=== PATIENT | female | born 1990 ===

== ENCOUNTER 2019-12-11 17:26 | Inpatient (IN) | payer OTHER ==
--- NOTE | 2019-12-11 19:23 | History and Physical Report ---
History of Present Illness Date of examination: 12/11/19 History of present illness: G1 Po at 40.6 weeks today for IOL for post dates. Uncomplicated except for anemia and a UTI. GBS neg. PT was finger tip dilated in the office earlier today. Good FM, no LOF or VB. Family member translated. Past History Past Medical History: other (anemia) Past Surgical History: no surgical history Social history: no significant social history - Obstetrical History Expected Date of Delivery: 12/05/19 Actual Gestation: 40 Week(s) 6 Day(s) : 1 Medications and Allergies Allergies Allergy/AdvReac Type Severity Reaction Status Date / Time Penicillins AdvReac Swelling Verified 12/11/19 19:20 Review of Systems All systems: negative (except HPI) - Physical Exam Abdomen: Positive: normal appearance, soft. Negative: tenderness - Obstetrical FHR: category 1 FHR comments: 130s, reactive Results All other labs normal. Assessment and Plan - Patient Problems (1) Post-dates Current Visit: Yes Status: Acute Plan to address problem: Will check BPP and then assuming cervix is unchanged, will start cervical ripening.
[2019-12-11] MEDS ORDERED: MINERAL OIL 30 ML ORAL LIQD PO PRN (21:46)
[2019-12-11] MEDS ORDERED: TERBUTALINE 1 MG/1 ML INJ IVP PRN (21:46)
[2019-12-11] MEDS ORDERED: LIDOCAINE (2%) 20 MG/1 ML VIAL 20 ML MDV INFILTRATI ONE (21:46)
[2019-12-11] MEDS ORDERED: TERBUTALINE 1 MG/1 ML INJ SUB-Q PRN (21:46)
[2019-12-11] MEDS ORDERED: ePHEDrine SULFATE 50 MG/1 ML INJ IV PRN (21:46)
[2019-12-11] MEDS ORDERED: DINOPROSTONE 10 MG VAG SUPP VG ONE (21:46)
[2019-12-11] MEDS ORDERED: OXYTOCIN 20 UNIT/1000ML DRIP 20 UNITS/1,000 ML BAG IV SCH (22:00)
--- NOTE | 2019-12-11 22:01 | Ultrasound Report ---
Biophysical profile INDICATION: Post dates COMPARISON: None FINDINGS: breathing movement: 2/2 movement: 2/2 posture and tone: 2/2 Qualitative amniotic fluid volume: 2/2 IMPRESSION: Total score for biophysical profile is 8/8 heart rate is 153 bpm Signer Name: Masoud Bautista MD Signed: 12/11/2019 9:57 PM Workstation Name: [id number]
[2019-12-12 00:06] LABS: Hematocrit 34.2 % (30.3-42.9); Hemoglobin 12.2 gm/dl (10.1-14.3); Mean Corpuscular HGB Conc 36 % (30-34); Mean Corpuscular Volume 87 fl (79-97); Platelet Count 331 K/mm3 (140-440); Red Blood Count 3.93 M/mm3 (3.65-5.03); Red Cell Distribution Width 14.3 % (13.2-15.2)
[2019-12-12] MEDS ORDERED: BUTORPHANOL 2 MG/1 ML INJ ONE (10:07)
--- NOTE | 2019-12-12 10:22 | Progress Note ---
Assessment and Plan A: IUP @ 41 weeks Category II Tracing Active Labor GBS Negative P: Remove Cervidil AROM Start Pitocin Augmentation IV Pain Control Subjective - Subjective Date of service: 12/12/19 Patient reports: movement normal, contractions (Requesting IV Pain Control) Objective - Vital Signs Vital Signs: Vital Signs - 12hr 12/11/19 12/11/19 12/12/19 23:19 23:49 00:20 Temperature Pulse Rate 76 74 79 Respiratory Rate Blood Pressure 122/60 111/55 99/52 Blood Pressure [Left] 12/12/19 12/12/19 07:43 07:51 Temperature 98.2 F Pulse Rate 70 70 Respiratory 14 Rate Blood Pressure 109/57 Blood Pressure 109/57 [Left] - Exam Breasts: normal Cardiovascular: Regular rate Lungs: Normal air movement Abdomen: Present: normal appearance, soft Uterus: Present: normal, firm, fundal height above umbilicus FHR: category 2 FHR comments: FHR: 140, moderte varability, -accels, +mild varabile decels Uterine Contraction Monitor Mode: External Cervical Dilatation: 3.5 (Small amount of clear fluid upon AROM @ 1004) Cervical Effacement Percentage: 70 station: -2 Uterine Contraction Pattern: Irregular Uterine Tone Measurement Phase: Resting Uterine Contraction Intensity: Mild Extremities: normal - Labs Labs: Abnormal Labs 12/11/19 22:40 MCHC 36 H Laboratory Results - last 24 hr 12/11/19 12/11/19 22:40 22:40 WBC 10.8 RBC 3.93 Hgb 12.2 Hct 34.2 MCV 87 MCH 31 MCHC 36 H RDW 14.3 Plt Count 331 Blood Type O POSITIVE Antibody Screen Negative
[2019-12-12] MEDS: LACTATED RINGERS 1,000 ML IV SCH ×4 (10:26→20:37)
[2019-12-12] MEDS ORDERED: MINERAL OIL 30 ML ORAL LIQD PO PRN (10:34)
[2019-12-12] MEDS ORDERED: NALOXONE 0.4 MG/1 ML INJ IV PRN (10:34)
[2019-12-12] MEDS ORDERED: ONDANSETRON 4 MG/2 ML INJ IV PRN (10:34)
[2019-12-12] MEDS ORDERED: BUTORPHANOL 2 MG/1 ML INJ IV PRN (10:34)
[2019-12-12] MEDS ORDERED: LIDOCAINE (2%) 20 MG/1 ML VIAL 20 ML MDV INFILTRATI ONE (10:34)
[2019-12-12] MEDS ORDERED: OXYTOCIN DRIP 30 UNITS/500 ML BAG IV SCH (11:00)
[2019-12-12] MEDS ORDERED: NALOXONE 2 MG/2 ML INJ IV PRN (13:03)
[2019-12-12] MEDS ORDERED: ePHEDrine SULFATE 50 MG/1 ML INJ IV PRN (13:03)
--- NOTE | 2019-12-12 13:03 | Anesthesia Consultation ---
Anesthesia Consult and Med Hx Date of service: 12/12/19 - Airway Anesthetic Teeth Evaluation: Good ROM Head & Neck: Adequate Mental/Hyoid Distance: Adequate Mallampati Class: Class II Intubation Access Assessment: Good - Pulmonary Exam CTA: Yes - Pre-Operative Health Status ASA Pre-Surgery Classification: ASA2, Emergency Proposed Anesthetic Plan: Epidural - Pulmonary Hx Asthma: No COPD: No Hx Pneumonia: No - Cardiovascular System Hx Hypertension: No - Central Nervous System Hx Seizures: No Hx Psychiatric Problems: No - Endocrine Hx Renal Disease: No Hx End Stage Renal Disease: No Hx Hypothyroidism: No Hx Hyperthyroidism: No - Hematic Hx Anemia: No Hx Sickle Cell Disease: No - Other Systems Hx Alcohol Use: No
[2019-12-12] MEDS: fentaNYL-BUPIV 2 MCG/ML-0.125% 200 MCG/100 ML BAG EPIDURAL SCH ×2 (13:26→21:24)
--- NOTE | 2019-12-12 19:02 | Progress Note ---
Assessment and Plan A: IUP @ 41 weeks Category I Tracing Active Labor GBS Negative P: Internals X2 Continue Pitocin Augmentation Multiple Maternal Position Changes Subjective - Subjective Date of service: 12/12/19 Patient reports: movement normal, other (Resting well under epidural anesthesia) Objective - Vital Signs Vital Signs: Vital Signs - 12hr 12/12/19 12/12/19 12/12/19 07:43 07:51 12:22 Temperature 98.2 F Pulse Rate 70 70 Respiratory 14 16 Rate Blood Pressure 109/57 Blood Pressure 109/57 [Left] O2 Sat by Pulse Oximetry 12/12/19 12/12/19 12/12/19 12:34 12:36 12:41 Temperature Pulse Rate 95 H 122 H 87 Respiratory Rate Blood Pressure 127/81 154/88 143/63 Blood Pressure [Left] O2 Sat by Pulse Oximetry 12/12/19 12/12/19 12/12/19 12:43 12:45 12:47 Temperature Pulse Rate 75 85 77 Respiratory Rate Blood Pressure 136/62 125/58 133/60 Blood Pressure [Left] O2 Sat by Pulse 96 90 Oximetry 12/12/19 12/12/19 12/12/19 12:48 12:49 12:51 Temperature Pulse Rate 82 77 85 Respiratory Rate Blood Pressure 122/58 124/58 Blood Pressure [Left] O2 Sat by Pulse 96 Oximetry 12/12/19 12/12/19 12/12/19 12:53 12:55 12:56 Temperature Pulse Rate 63 63 75 Respiratory Rate Blood Pressure 137/63 120/58 Blood Pressure [Left] O2 Sat by Pulse 96 94 Oximetry 12/12/19 12/12/19 12/12/19 12:58 12:59 13:00 Temperature Pulse Rate 69 69 74 Respiratory Rate Blood Pressure 138/59 131/61 Blood Pressure [Left] O2 Sat by Pulse 99 Oximetry 12/12/19 12/12/19 12/12/19 13:01 13:03 13:05 Temperature Pulse Rate 70 67 64 Respiratory Rate Blood Pressure 137/60 133/63 135/60 Blood Pressure [Left] O2 Sat by Pulse 98 Oximetry 12/12/19 12/12/19 12/12/19 13:07 13:09 13:10 Temperature Pulse Rate 65 68 70 Respiratory Rate Blood Pressure 141/65 133/60 Blood Pressure [Left] O2 Sat by Pulse 97 Oximetry 12/12/19 12/12/19 12/12/19 13:11 13:13 13:15 Temperature Pulse Rate 80 66 71 Respiratory Rate Blood Pressure 137/60 136/61 140/65 Blood Pressure [Left] O2 Sat by Pulse 99 Oximetry 12/12/19 12/12/19 12/12/19 13:17 13:19 13:20 Temperature Pulse Rate 68 66 76 Respiratory Rate Blood Pressure 131/62 128/57 Blood Pressure [Left] O2 Sat by Pulse 99 Oximetry 12/12/19 12/12/19 12/12/19 13:21 13:25 13:30 Temperature Pulse Rate 69 67 68 Respiratory Rate Blood Pressure 165/133 121/59 Blood Pressure [Left] O2 Sat by Pulse 97 96 Oximetry 12/12/19 12/12/19 12/12/19 13:35 13:40 13:45 Temperature Pulse Rate 69 70 63 Respiratory Rate Blood Pressure Blood Pressure [Left] O2 Sat by Pulse 97 98 97 Oximetry 12/12/19 12/12/19 12/12/19 13:50 13:53 13:55 Temperature Pulse Rate 69 69 63 Respiratory Rate Blood Pressure 112/62 Blood Pressure [Left] O2 Sat by Pulse 98 97 Oximetry 12/12/19 12/12/19 12/12/19 14:00 14:05 14:10 Temperature Pulse Rate 66 74 72 Respiratory Rate Blood Pressure Blood Pressure [Left] O2 Sat by Pulse 98 98 97 Oximetry 12/12/19 12/12/19 12/12/19 14:15 14:20 14:22 Temperature Pulse Rate 65 65 76 Respiratory Rate Blood Pressure 116/67 Blood Pressure [Left] O2 Sat by Pulse 97 98 Oximetry 12/12/19 12/12/19 12/12/19 14:25 14:30 14:35 Temperature Pulse Rate 71 65 67 Respiratory Rate Blood Pressure Blood Pressure [Left] O2 Sat by Pulse 99 100 98 Oximetry 12/12/19 12/12/19 12/12/19 14:40 14:45 14:50 Temperature Pulse Rate 70 72 72 Respiratory Rate Blood Pressure Blood Pressure [Left] O2 Sat by Pulse 98 98 99 Oximetry 12/12/19 12/12/19 12/12/19 14:52 14:55 15:00 Temperature 97.9 F Pulse Rate 68 67 79 Respiratory 16 Rate Blood Pressure 111/69 Blood Pressure 111/69 [Left] O2 Sat by Pulse 99 99 99 Oximetry 12/12/19 12/12/19 12/12/19 15:05 15:10 15:15 Temperature Pulse Rate 70 76 67 Respiratory Rate Blood Pressure Blood Pressure [Left] O2 Sat by Pulse 99 98 98 Oximetry 12/12/19 12/12/19 12/12/19 15:20 15:23 15:25 Temperature Pulse Rate 73 69 72 Respiratory Rate Blood Pressure 117/58 Blood Pressure [Left] O2 Sat by Pulse 97 97 Oximetry 12/12/19 12/12/19 12/12/19 15:26 15:30 15:35 Temperature Pulse Rate 67 73 Respiratory 16 Rate Blood Pressure 117/58 Blood Pressure [Left] O2 Sat by Pulse 98 97 Oximetry 12/12/19 12/12/19 12/12/19 15:40 15:45 15:50 Temperature Pulse Rate 67 73 70 Respiratory Rate Blood Pressure Blood Pressure [Left] O2 Sat by Pulse 98 97 98 Oximetry 12/12/19 12/12/19 12/12/19 15:52 15:55 16:00 Temperature Pulse Rate 69 69 79 Respiratory Rate Blood Pressure 116/61 Blood Pressure [Left] O2 Sat by Pulse 98 98 Oximetry 12/12/19 12/12/19 12/12/19 16:05 16:10 16:13 Temperature Pulse Rate 78 96 H 117 H Respiratory Rate Blood Pressure Blood Pressure [Left] O2 Sat by Pulse 97 94 90 Oximetry 12/12/19 12/12/19 12/12/19 16:15 16:20 16:24 Temperature Pulse Rate 80 82 79 Respiratory Rate Blood Pressure 120/59 Blood Pressure [Left] O2 Sat by Pulse 97 97 Oximetry 12/12/19 12/12/19 12/12/19 16:25 16:30 16:35 Temperature Pulse Rate 92 H 81 79 Respiratory Rate Blood Pressure Blood Pressure [Left] O2 Sat by Pulse 97 97 96 Oximetry 12/12/19 12/12/19 12/12/19 16:40 16:45 16:50 Temperature Pulse Rate 75 76 77 Respiratory Rate Blood Pressure Blood Pressure [Left] O2 Sat by Pulse 97 96 97 Oximetry 12/12/19 12/12/19 12/12/19 16:52 16:54 16:55 Temperature Pulse Rate 83 76 77 Respiratory 16 Rate Blood Pressure 112/63 Blood Pressure 112/63 [Left] O2 Sat by Pulse 97 97 Oximetry 12/12/19 12/12/19 12/12/19 17:00 17:05 17:10 Temperature Pulse Rate 77 79 78 Respiratory Rate Blood Pressure Blood Pressure [Left] O2 Sat by Pulse 96 97 97 Oximetry 12/12/19 12/12/19 12/12/19 17:15 17:20 17:22 Temperature Pulse Rate 84 80 94 H Respiratory Rate Blood Pressure 100/59 Blood Pressure [Left] O2 Sat by Pulse 97 98 Oximetry 12/12/19 12/12/19 12/12/19 17:25 17:30 17:35 Temperature Pulse Rate 77 79 79 Respiratory Rate Blood Pressure Blood Pressure [Left] O2 Sat by Pulse 96 97 98 Oximetry 12/12/19 12/12/19 12/12/19 17:40 17:45 17:50 Temperature Pulse Rate 85 79 80 Respiratory Rate Blood Pressure Blood Pressure [Left] O2 Sat by Pulse 98 97 98 Oximetry 12/12/19 12/12/19 12/12/19 17:52 17:55 18:00 Temperature Pulse Rate 89 82 125 H Respiratory Rate Blood Pressure 119/58 Blood Pressure [Left] O2 Sat by Pulse 97 96 Oximetry 12/12/19 12/12/19 12/12/19 18:05 18:10 18:15 Temperature Pulse Rate 107 H 98 H 104 H Respiratory Rate Blood Pressure Blood Pressure [Left] O2 Sat by Pulse 98 98 99 Oximetry 12/12/19 12/12/19 12/12/19 18:20 18:23 18:25 Temperature Pulse Rate 91 H 84 84 Respiratory Rate Blood Pressure 110/62 Blood Pressure [Left] O2 Sat by Pulse 98 97 Oximetry 12/12/19 12/12/19 12/12/19 18:28 18:30 18:35 Temperature 98.1 F Pulse Rate 83 83 84 Respiratory 18 Rate Blood Pressure Blood Pressure 110/62 [Left] O2 Sat by Pulse 98 98 98 Oximetry 12/12/19 12/12/19 12/12/19 18:40 18:45 18:50 Temperature Pulse Rate 76 78 87 Respiratory Rate Blood Pressure Blood Pressure [Left] O2 Sat by Pulse 99 99 99 Oximetry 12/12/19 12/12/19 18:53 18:55 Temperature Pulse Rate 77 78 Respiratory Rate Blood Pressure 117/72 Blood Pressure [Left] O2 Sat by Pulse 98 Oximetry - Exam Breasts: normal Cardiovascular: Regular rate Lungs: Clear to auscultation, Normal air movement Abdomen: Present: normal appearance, soft, normal bowel sounds Uterus: Present: normal, firm, fundal height above umbilicus FHR: category 1 Uterine Contraction Monitor Mode: Internal Cervical Dilatation: 7 Cervical Effacement Percentage: 80 station: -2 Uterine Contraction Pattern: Regular Uterine Tone Measurement Phase: Resting Uterine Contraction Intensity: Moderate Extremities: normal - Labs Labs: Abnormal Labs 12/11/19 22:40 MCHC 36 H Laboratory Results - last 24 hr 12/11/19 12/11/19 22:40 22:40 WBC 10.8 RBC 3.93 Hgb 12.2 Hct 34.2 MCV 87 MCH 31 MCHC 36 H RDW 14.3 Plt Count 331 Blood Type O POSITIVE Antibody Screen Negative
[2019-12-12] MEDS ORDERED: METOCLOPRAMIDE 10 MG/2 ML INJ ONE (23:40)
[2019-12-12] MEDS ORDERED: BICITRA ORAL LIQD 30ML ONE (23:40)
--- NOTE | 2019-12-12 23:40 | Anesthesia Day of Surgery ---
Anesthesia Day of Surgery - Day of Surgery Patient Examined: Yes Patient H&P Reviewed: Yes Patient is NPO: Yes
[2019-12-12] MEDS ORDERED: FAMOTIDINE 20 MG/2 ML INJ IV ONE (23:41)
[2019-12-12] MEDS ORDERED: ceFAZolin/Water 2 GM/20 ML 2 GM/20 ML SYRINGE IV ONE (23:41)
[2019-12-12] MEDS ORDERED: DEXMEDETOMIDINE 200 MCG/2 ML VIAL IV ONE (23:47)
[2019-12-12] MEDS ORDERED: BUPIVACAINE/PF (0.25%) 2.5 MG/ML 10 ML VIAL INFILTRATI ONE (23:47)
[2019-12-13] MEDS ORDERED: BICITRA ORAL LIQD 30ML PO ONE (00:19)
[2019-12-13] MEDS ORDERED: METOCLOPRAMIDE 10 MG/2 ML INJ IV ONE (00:19)
[2019-12-13] MEDS ORDERED: FAMOTIDINE 20 MG/2 ML INJ IV ONE (00:19)
--- NOTE | 2019-12-13 00:33 | Progress Note ---
Subjective - Subjective Date of service: 12/13/19 Principal diagnosis: IIOL Interval history: Failed IOL cervix unchanged, vertex at -3, +ve caput tracing Category 1 plan for delivery informed consent signed with the [employer] NPO protection specialist to OR for procedure Jane Casper MD Patient reports: movement normal, other (Resting well under epidural anesthesia) Objective - Vital Signs Vital Signs: Vital Signs - 12hr 12/12/19 12/12/19 12/12/19 12:34 12:36 12:41 Temperature Pulse Rate 95 H 122 H 87 Respiratory Rate Blood Pressure 127/81 154/88 143/63 Blood Pressure [Left] O2 Sat by Pulse Oximetry 12/12/19 12/12/19 12/12/19 12:43 12:45 12:47 Temperature Pulse Rate 75 85 77 Respiratory Rate Blood Pressure 136/62 125/58 133/60 Blood Pressure [Left] O2 Sat by Pulse 96 90 Oximetry 12/12/19 12/12/19 12/12/19 12:48 12:49 12:51 Temperature Pulse Rate 82 77 85 Respiratory Rate Blood Pressure 122/58 124/58 Blood Pressure [Left] O2 Sat by Pulse 96 Oximetry 12/12/19 12/12/19 12/12/19 12:53 12:55 12:56 Temperature Pulse Rate 63 63 75 Respiratory Rate Blood Pressure 137/63 120/58 Blood Pressure [Left] O2 Sat by Pulse 96 94 Oximetry 12/12/19 12/12/19 12/12/19 12:58 12:59 13:00 Temperature Pulse Rate 69 69 74 Respiratory Rate Blood Pressure 138/59 131/61 Blood Pressure [Left] O2 Sat by Pulse 99 Oximetry 12/12/19 12/12/19 12/12/19 13:01 13:03 13:05 Temperature Pulse Rate 70 67 64 Respiratory Rate Blood Pressure 137/60 133/63 135/60 Blood Pressure [Left] O2 Sat by Pulse 98 Oximetry 12/12/19 12/12/19 12/12/19 13:07 13:09 13:10 Temperature Pulse Rate 65 68 70 Respiratory Rate Blood Pressure 141/65 133/60 Blood Pressure [Left] O2 Sat by Pulse 97 Oximetry 12/12/19 12/12/19 12/12/19 13:11 13:13 13:15 Temperature Pulse Rate 80 66 71 Respiratory Rate Blood Pressure 137/60 136/61 140/65 Blood Pressure [Left] O2 Sat by Pulse 99 Oximetry 12/12/19 12/12/19 12/12/19 13:17 13:19 13:20 Temperature Pulse Rate 68 66 76 Respiratory Rate Blood Pressure 131/62 128/57 Blood Pressure [Left] O2 Sat by Pulse 99 Oximetry 12/12/19 12/12/19 12/12/19 13:21 13:25 13:30 Temperature Pulse Rate 69 67 68 Respiratory Rate Blood Pressure 165/133 121/59 Blood Pressure [Left] O2 Sat by Pulse 97 96 Oximetry 12/12/19 12/12/19 12/12/19 13:35 13:40 13:45 Temperature Pulse Rate 69 70 63 Respiratory Rate Blood Pressure Blood Pressure [Left] O2 Sat by Pulse 97 98 97 Oximetry 12/12/19 12/12/19 12/12/19 13:50 13:53 13:55 Temperature Pulse Rate 69 69 63 Respiratory Rate Blood Pressure 112/62 Blood Pressure [Left] O2 Sat by Pulse 98 97 Oximetry 12/12/19 12/12/19 12/12/19 14:00 14:05 14:10 Temperature Pulse Rate 66 74 72 Respiratory Rate Blood Pressure Blood Pressure [Left] O2 Sat by Pulse 98 98 97 Oximetry 12/12/19 12/12/19 12/12/19 14:15 14:20 14:22 Temperature Pulse Rate 65 65 76 Respiratory Rate Blood Pressure 116/67 Blood Pressure [Left] O2 Sat by Pulse 97 98 Oximetry 12/12/19 12/12/19 12/12/19 14:25 14:30 14:35 Temperature Pulse Rate 71 65 67 Respiratory Rate Blood Pressure Blood Pressure [Left] O2 Sat by Pulse 99 100 98 Oximetry 12/12/19 12/12/19 12/12/19 14:40 14:45 14:50 Temperature Pulse Rate 70 72 72 Respiratory Rate Blood Pressure Blood Pressure [Left] O2 Sat by Pulse 98 98 99 Oximetry 12/12/19 12/12/19 12/12/19 14:52 14:55 15:00 Temperature 97.9 F Pulse Rate 68 67 79 Respiratory 16 Rate Blood Pressure 111/69 Blood Pressure 111/69 [Left] O2 Sat by Pulse 99 99 99 Oximetry 12/12/19 12/12/19 12/12/19 15:05 15:10 15:15 Temperature Pulse Rate 70 76 67 Respiratory Rate Blood Pressure Blood Pressure [Left] O2 Sat by Pulse 99 98 98 Oximetry 12/12/19 12/12/19 12/12/19 15:20 15:23 15:25 Temperature Pulse Rate 73 69 72 Respiratory Rate Blood Pressure 117/58 Blood Pressure [Left] O2 Sat by Pulse 97 97 Oximetry 12/12/19 12/12/19 12/12/19 15:26 15:30 15:35 Temperature Pulse Rate 67 73 Respiratory 16 Rate Blood Pressure 117/58 Blood Pressure [Left] O2 Sat by Pulse 98 97 Oximetry 12/12/19 12/12/19 12/12/19 15:40 15:45 15:50 Temperature Pulse Rate 67 73 70 Respiratory Rate Blood Pressure Blood Pressure [Left] O2 Sat by Pulse 98 97 98 Oximetry 12/12/19 12/12/19 12/12/19 15:52 15:55 16:00 Temperature Pulse Rate 69 69 79 Respiratory Rate Blood Pressure 116/61 Blood Pressure [Left] O2 Sat by Pulse 98 98 Oximetry 12/12/19 12/12/19 12/12/19 16:05 16:10 16:13 Temperature Pulse Rate 78 96 H 117 H Respiratory Rate Blood Pressure Blood Pressure [Left] O2 Sat by Pulse 97 94 90 Oximetry 12/12/19 12/12/19 12/12/19 16:15 16:20 16:24 Temperature Pulse Rate 80 82 79 Respiratory Rate Blood Pressure 120/59 Blood Pressure [Left] O2 Sat by Pulse 97 97 Oximetry 12/12/19 12/12/19 12/12/19 16:25 16:30 16:35 Temperature Pulse Rate 92 H 81 79 Respiratory Rate Blood Pressure Blood Pressure [Left] O2 Sat by Pulse 97 97 96 Oximetry 12/12/19 12/12/19 12/12/19 16:40 16:45 16:50 Temperature Pulse Rate 75 76 77 Respiratory Rate Blood Pressure Blood Pressure [Left] O2 Sat by Pulse 97 96 97 Oximetry 12/12/19 12/12/19 12/12/19 16:52 16:54 16:55 Temperature Pulse Rate 83 76 77 Respiratory 16 Rate Blood Pressure 112/63 Blood Pressure 112/63 [Left] O2 Sat by Pulse 97 97 Oximetry 12/12/19 12/12/19 12/12/19 17:00 17:05 17:10 Temperature Pulse Rate 77 79 78 Respiratory Rate Blood Pressure Blood Pressure [Left] O2 Sat by Pulse 96 97 97 Oximetry 12/12/19 12/12/19 12/12/19 17:15 17:20 17:22 Temperature Pulse Rate 84 80 94 H Respiratory Rate Blood Pressure 100/59 Blood Pressure [Left] O2 Sat by Pulse 97 98 Oximetry 12/12/19 12/12/19 12/12/19 17:25 17:30 17:35 Temperature Pulse Rate 77 79 79 Respiratory Rate Blood Pressure Blood Pressure [Left] O2 Sat by Pulse 96 97 98 Oximetry 12/12/19 12/12/19 12/12/19 17:40 17:45 17:50 Temperature Pulse Rate 85 79 80 Respiratory Rate Blood Pressure Blood Pressure [Left] O2 Sat by Pulse 98 97 98 Oximetry 12/12/19 12/12/19 12/12/19 17:52 17:55 18:00 Temperature Pulse Rate 89 82 125 H Respiratory Rate Blood Pressure 119/58 Blood Pressure [Left] O2 Sat by Pulse 97 96 Oximetry 12/12/19 12/12/19 12/12/19 18:05 18:10 18:15 Temperature Pulse Rate 107 H 98 H 104 H Respiratory Rate Blood Pressure Blood Pressure [Left] O2 Sat by Pulse 98 98 99 Oximetry 12/12/19 12/12/19 12/12/19 18:20 18:23 18:25 Temperature Pulse Rate 91 H 84 84 Respiratory Rate Blood Pressure 110/62 Blood Pressure [Left] O2 Sat by Pulse 98 97 Oximetry 12/12/19 12/12/19 12/12/19 18:28 18:30 18:35 Temperature 98.1 F Pulse Rate 83 83 84 Respiratory 18 Rate Blood Pressure Blood Pressure 110/62 [Left] O2 Sat by Pulse 98 98 98 Oximetry 12/12/19 12/12/19 12/12/19 18:40 18:45 18:50 Temperature Pulse Rate 76 78 87 Respiratory Rate Blood Pressure Blood Pressure [Left] O2 Sat by Pulse 99 99 99 Oximetry 12/12/19 12/12/19 12/12/19 18:53 18:55 19:00 Temperature Pulse Rate 77 78 79 Respiratory Rate Blood Pressure 117/72 Blood Pressure [Left] O2 Sat by Pulse 98 99 Oximetry 12/12/19 12/12/19 12/12/19 19:05 19:10 19:15 Temperature Pulse Rate 79 80 82 Respiratory Rate Blood Pressure Blood Pressure [Left] O2 Sat by Pulse 97 98 98 Oximetry 12/12/19 12/12/19 12/12/19 19:20 19:23 19:25 Temperature Pulse Rate 73 73 77 Respiratory Rate Blood Pressure 110/65 Blood Pressure [Left] O2 Sat by Pulse 98 97 Oximetry 12/12/19 12/12/19 12/12/19 19:30 19:35 19:40 Temperature Pulse Rate 85 78 72 Respiratory Rate Blood Pressure Blood Pressure [Left] O2 Sat by Pulse 97 95 97 Oximetry 12/12/19 12/12/19 12/12/19 19:45 19:50 19:52 Temperature Pulse Rate 75 82 78 Respiratory Rate Blood Pressure 118/70 Blood Pressure [Left] O2 Sat by Pulse 96 97 Oximetry 12/12/19 12/12/19 12/12/19 19:55 20:00 20:05 Temperature Pulse Rate 80 81 81 Respiratory Rate Blood Pressure Blood Pressure [Left] O2 Sat by Pulse 98 97 97 Oximetry 12/12/19 12/12/19 12/12/19 20:10 20:15 20:20 Temperature Pulse Rate 76 85 85 Respiratory Rate Blood Pressure Blood Pressure [Left] O2 Sat by Pulse 97 98 100 Oximetry 12/12/19 12/12/19 12/12/19 20:24 20:25 20:29 Temperature Pulse Rate 81 85 84 Respiratory 18 Rate Blood Pressure 110/60 Blood Pressure 110/60 [Left] O2 Sat by Pulse 100 100 Oximetry 12/12/19 12/12/19 12/12/19 20:30 20:35 20:40 Temperature Pulse Rate 83 79 72 Respiratory Rate Blood Pressure Blood Pressure [Left] O2 Sat by Pulse 100 99 99 Oximetry 12/12/19 12/12/19 12/12/19 20:45 20:50 20:52 Temperature Pulse Rate 70 74 72 Respiratory Rate Blood Pressure 103/55 Blood Pressure [Left] O2 Sat by Pulse 100 99 Oximetry 12/12/19 12/12/19 12/12/19 20:55 21:00 21:05 Temperature Pulse Rate 79 84 76 Respiratory Rate Blood Pressure Blood Pressure [Left] O2 Sat by Pulse 100 100 100 Oximetry 12/12/19 12/12/19 12/12/19 21:10 21:15 21:20 Temperature Pulse Rate 74 76 79 Respiratory Rate Blood Pressure Blood Pressure [Left] O2 Sat by Pulse 99 100 100 Oximetry 12/12/19 12/12/19 12/12/19 21:24 21:25 21:29 Temperature Pulse Rate 72 81 85 Respiratory Rate Blood Pressure 104/53 119/65 Blood Pressure [Left] O2 Sat by Pulse 100 Oximetry 12/12/19 12/12/19 12/12/19 21:30 21:35 21:40 Temperature Pulse Rate 79 78 82 Respiratory Rate Blood Pressure Blood Pressure [Left] O2 Sat by Pulse 100 99 98 Oximetry 12/12/19 12/12/19 12/12/19 21:45 21:50 21:55 Temperature Pulse Rate 139 H 107 H 94 H Respiratory Rate Blood Pressure Blood Pressure [Left] O2 Sat by Pulse 96 98 97 Oximetry 12/12/19 12/12/19 12/12/19 22:00 22:05 22:10 Temperature 98.9 F Pulse Rate 87 88 82 Respiratory 20 Rate Blood Pressure 102/56 Blood Pressure [Left] O2 Sat by Pulse 97 96 97 Oximetry 12/12/19 12/12/19 12/12/19 22:15 22:20 22:25 Temperature Pulse Rate 83 84 82 Respiratory Rate Blood Pressure Blood Pressure [Left] O2 Sat by Pulse 97 97 97 Oximetry 12/12/19 12/12/19 12/12/19 22:30 22:35 22:40 Temperature Pulse Rate 85 82 84 Respiratory Rate Blood Pressure 98/55 Blood Pressure [Left] O2 Sat by Pulse 98 97 96 Oximetry 12/12/19 12/12/19 12/12/19 22:45 22:50 22:55 Temperature Pulse Rate 83 83 82 Respiratory Rate Blood Pressure Blood Pressure [Left] O2 Sat by Pulse 95 97 96 Oximetry 12/12/19 12/12/19 12/12/19 23:00 23:05 23:10 Temperature Pulse Rate 84 73 79 Respiratory Rate Blood Pressure 98/51 Blood Pressure [Left] O2 Sat by Pulse 99 99 99 Oximetry 12/12/19 12/12/19 12/12/19 23:15 23:20 23:25 Temperature Pulse Rate 81 101 H 70 Respiratory Rate Blood Pressure Blood Pressure [Left] O2 Sat by Pulse 99 100 100 Oximetry 12/12/19 12/12/19 12/12/19 23:30 23:31 23:35 Temperature Pulse Rate 66 63 66 Respiratory Rate Blood Pressure 136/63 Blood Pressure [Left] O2 Sat by Pulse 98 100 Oximetry 12/12/19 12/12/19 12/12/19 23:40 23:45 23:50 Temperature Pulse Rate 70 81 84 Respiratory Rate Blood Pressure Blood Pressure [Left] O2 Sat by Pulse 100 100 100 Oximetry 12/12/19 12/13/19 12/13/19 23:55 00:00 00:02 Temperature Pulse Rate 73 105 H 82 Respiratory Rate Blood Pressure 115/63 Blood Pressure [Left] O2 Sat by Pulse 100 100 Oximetry 12/13/19 12/13/19 12/13/19 00:05 00:10 00:15 Temperature Pulse Rate 78 78 76 Respiratory Rate Blood Pressure Blood Pressure [Left] O2 Sat by Pulse 100 100 100 Oximetry 12/13/19 12/13/19 00:20 00:25 Temperature Pulse Rate 82 74 Respiratory Rate Blood Pressure Blood Pressure [Left] O2 Sat by Pulse 100 100 Oximetry - Labs Labs: Abnormal Labs 12/11/19 22:40 MCHC 36 H Laboratory Results - last 24 hr 12/11/19 22:40 Blood Type O POSITIVE Antibody Screen Negative
[2019-12-13] MEDS ORDERED: ceFAZolin/STERILE WATER 2 GM/20 ML SYRINGE IV ONE (00:44)
[2019-12-13] MEDS ORDERED: WATER FOR IRRIG STERILE 1,500 ML BOTTLE IR ONE (00:57)
[2019-12-13] MEDS ORDERED: SODIUM CHLORIDE 0.9% IRR 1,500 ML BOTTLE IR ONE (00:57)
[2019-12-13] MEDS ORDERED: ceFAZolin/Water 2 GM/20 ML 2 GM/20 ML SYRINGE IV NR (01:00)
[2019-12-13] MEDS ORDERED: OXYTOCIN 20 UNIT/1000ML DRIP 20 UNITS/1,000 ML BAG IV SCH ×2 (01:00→03:00)
[2019-12-13] MEDS ORDERED: LACTATED RINGERS 1,000 ML IV SCH (01:00)
[2019-12-13] MEDS ORDERED: METHYLERGONOVINE MALEATE 0.2 MG/ML VIAL IM ONE ×2 (01:12→05:37)
[2019-12-13] MEDS ORDERED: ONDANSETRON 4 MG/2 ML INJ ONE (01:15)
[2019-12-13] MEDS ORDERED: KETOROLAC 30 MG/1 ML INJ ONE (01:15)
[2019-12-13] MEDS ORDERED: OXYTOCIN 10 UNIT/1 ML INJ ONE (01:15)
--- NOTE | 2019-12-13 02:02 | Procedure Note ---
OB Delivery Note - Delivery Date of Delivery: 12/13/19 Surgeon: LAZARA DUFF Estimated blood loss: other (800ml) - Section Preop diagnosis: arrest of dilation Postop diagnosis: same section procedure: primary low transverse Disposition: PACU Complications: none Narrative: Preoperative diagnosis: IUP at 41+1/7 weeks, arrest of dilatation Postoperative diagnosis: Same, suspected subclinical chorioamnionitis, extensive endometriosis Procedure: Primary Low Transverse section via Pfannenstiel incision Surgeon: Dr Lazara Duff Assist: Scrub Anesthesia: Epidural Findings: viable female, 8,9; weight 3596gms Normal uterus, tubes and ovaries bilaterally with Extensive endometriosis Complications:none Drains: Hansen to gravity EBL: 800mL IV Fluids: 1500ml Urine Output: 100ml adequate and clear Procedure: informed consent taken in 2006 with the Brass Buffer. All questions and concerns addressed. R/B/C reviewed. She was taken to the OR where excellent epidural anesthesia was verified. She was placed in the dorsal supine position with a leftward tilt. She was prepped and draped in a sterile fashion. A time out was verified. An Karis clamp was used to assure adequate analgesia. A Pfannenstiel skin incision was made, taken down through the underlying fascia sharply and extended laterally with curved Leigh scissors. The superior and inferior aspect of the fascial incision was grasped with Mark clamps and the rectus muscles dissected off sharply. The abdomen was entered sharply in the midline and extended laterally and inferiorly sharply with good visualization of the underlying structures. The vesicouterine peritoneum was grasped with Haitian forceps and incised sharply with Metzenbaum scissors and extended laterlaly sharply. The bladder flap was created digitally. A bladder blade was inserted. The uterine incision was made sharply with a scalpel, taken down to the amnion and extended inferiorly and superiorly bluntly. The bladder blade removed. Baby delivered atraumatically in cephalic presentation, no nuchal cord. Spontaneous cry at delivery.The cord was clamped and cut and baby handed to waiting NICU staff. An intact placenta with three vessel cord delivered manually. The uterus cleared of all clots and debris. The uterus was exteriorized and the uterine incision closed with 3 layers of 0-Vicryl. Extensive endometriosis noted on posterior aspect of uterus, ovaries and fallopian tubes bilterally The abdomen was irrigated with warm normal saline and the uterus placed back in the abdomen. A second look at the uterine incision assured excellent hemostasis. A procoagulant was placed on the uterine incision. The peritoneum closed with 3- 0 vicryl. The rectus muscles approximated with 3-0 vicryl with good hemostasis. The fascia closed with 0-Vicryl in the usual fashion, and the underlying structures closed with interrupted suture of O-Vicryl. The skin closed with bishop and a pressure dressing applied. Mom and baby stable to . Patient hemodynamically stable in PACU. EBL 800ml Diogo GUAJARDO
--- NOTE | 2019-12-13 02:14 | Post Anesthesia Evaluation ---
- Post Anesthesia Evaluation Patient Participated: Yes Airway Patent: Yes Stable Respiratory Function: Yes Nausea/Vomiting: No Temp > 96.8F: Yes Pain Manageable: Yes Adequeate Hydration: Yes Anesthesia Complications: No Block Receding Appropriately: Yes Patient on Ventilator: No
[2019-12-13] MEDS ORDERED: MORPHINE 2 MG/1 ML INJ IV PRN (02:28)
[2019-12-13] MEDS ORDERED: ACETAMINOPHEN 650 MG RECT SUPP PR PRN (02:28)
[2019-12-13] MEDS ORDERED: ONDANSETRON 4 MG/2 ML INJ IV PRN (02:28)
[2019-12-13] MEDS ORDERED: NALOXONE 0.4 MG/1 ML INJ IV PRN (02:28)
[2019-12-13] MEDS ORDERED: WITCH HAZEL/ GLYCERIN PAD TP PRN (02:28)
[2019-12-13] MEDS ORDERED: MORPHINE 4 MG/1 ML INJ IV PRN (02:28)
[2019-12-13] MEDS ORDERED: IBUPROFEN 800 MG TAB PO PRN (02:28)
[2019-12-13] MEDS ORDERED: LANOLIN/ZINC/DIMETHICONE (LANSINOH) 7 GM TP PRN (02:28)
[2019-12-13] MEDS: oxyCODONE /ACETAMINOPHEN 5-325MG TAB PO PRN ×2 (14:20→21:08)
[2019-12-13 16:01] LABS: Hematocrit 29.2 % (30.3-42.9); Hemoglobin 9.9 gm/dl (10.1-14.3)
[2019-12-14] MEDS: FERROUS SULFATE 325 MG TAB PO SCH ×2 (10:17→21:17)
--- NOTE | 2019-12-14 10:57 | Progress Note ---
Assessment and Plan - Patient Problems (1) S/P primary low transverse Current Visit: Yes Status: Acute Plan to address problem: POD 1 - stable Continue routine postop orders Ambulation encouraged Abdominal binder ordered Advance diet per protocol after flatus Anticipate discharge in 24-48 hours (2) Single live Current Visit: Yes Status: Acute (3) Anemia due to blood loss, acute Current Visit: Yes Status: Acute Plan to address problem: Asymptomatic Continue iron therapy Subjective - Subjective Date of service: 12/14/19 Principal diagnosis: POD #1; s/p Primary LTCS Interval history: see H&P, OB Progress Notes and OB Delivery Procedure Note Patient reports: appetite normal, voiding normally, pain well controlled, ambulating normally, no dizzy ambulation, no flatus, no bowel movement : doing well, nursing well Objective - Vital Signs Latest vital signs: Vital Signs Temp Pulse Resp BP BP Pulse Ox 12/14/19 07:53 101/54 12/14/19 07:51 97.5 F L 64 18 101/54 97 12/14/19 03:28 18 12/14/19 02:35 99.1 F 100 H 18 117/59 98 12/13/19 21:14 99.1 F 83 18 113/62 99 12/13/19 21:08 18 12/13/19 16:22 99.6 F 87 20 114/46 98 12/13/19 12:09 99.6 F 81 20 102/43 95 Intake and Output 12/13/19 12/14/19 12/14/19 23:59 07:59 15:59 Intake Total 360 600 Output Total 400 Balance -40 600 Intake: Oral 360 600 Output: Urine 400 Void 400 Other: Total, Intake Amount 120 480 Total, Output Amount 400 # Voids Void 1 1 - Exam Abdomen: Present: normal appearance, soft Vulva: both: normal Uterus: Present: normal, firm, fundal height at umbilicus Extremities: Present: normal Incision: Present: normal, dry, intact, dressed Comments: small lochia - Labs Labs: Abnormal lab results 12/13/19 Range/Units 15:19 Hgb 9.9 L (10.1-14.3) gm/dl Hct 29.2 L (30.3-42.9) %
[2019-12-14] MEDS: oxyCODONE /ACETAMINOPHEN 5-325MG TAB PO PRN (23:10)
[2019-12-15] MEDS: FERROUS SULFATE 325 MG TAB PO SCH ×2 (10:09→23:47)
--- NOTE | 2019-12-15 11:16 | Progress Note ---
Assessment and Plan A: /postop day 2 S/P primary low transverse section. Anemia secondary to and blood loss. P: Continue iron supplementation. Encouraged ambulation. Anticipate discharge tomorrow. Subjective - Subjective Date of service: 12/15/19 Principal diagnosis: POD #2; s/p Primary LTCS Interval history: /postop day 2 S/P primary low transverse section. Doing well. Voiding without difficulty. Ambulating well. Passing gas. Tolerating a regular diet without nausea or vomiting. Patient denies headache, chest pain, dizziness, cough, abdominal pain, leg pain, or heavy bleeding. Patient has anemia and is receiving iron supplementation. Patient reports: appetite normal, voiding normally, pain well controlled, flatus, ambulating normally, no dizzy ambulation, no nauseated [place]: doing well Objective - Vital Signs Latest vital signs: Vital Signs Temp Pulse Resp BP BP Pulse Ox 12/15/19 02:21 98.0 F 67 18 101/51 97 12/14/19 23:10 18 12/14/19 16:51 99.2 F 77 18 108/46 Intake and Output 12/14/19 12/15/19 12/15/19 23:59 07:59 15:59 Intake Total 480 420 120 Output Total 600 Balance 480 420 -480 Intake: Oral 480 120 Intake, Free Water 420 Output: Urine 600 Void 600 Other: Total, Intake Amount 480 120 Total, Output Amount 600 # Voids Indwelling Catheter 1 Void 1 1 1 - Exam Cardiovascular: Present: Regular rate, Normal S1, Normal S2 Lungs: Present: Clear to auscultation Abdomen: Present: normal appearance, soft, normal bowel sounds. Absent: distention, tenderness, guarding, rigidity Uterus: Present: normal, firm, fundal height below umbilicus. Absent: bogginess, tenderness Extremities: Present: normal. Absent: tenderness Incision: Present: normal, dry, intact
[2019-12-16] MEDS: FERROUS SULFATE 325 MG TAB PO SCH (10:19)
--- NOTE | 2019-12-16 11:18 | Progress Note ---
Assessment and Plan A: /postop day 3 S/P primary LTCS. Anemia secondary to and blood loss. P: Discharge patient home today. Discussed with patient discharge instructions and warning signs. Advised patient re: care of incision and activity restrictions. Advised patient to avoid intercourse, lifting, housework, and driving. Advised patient to continue taking vitamin and iron supplements at home. Advised patient to follow up at the OB clinic in 1 week for incision check (advised patient she must call the clinic this week to obtain an appointment). Patient voiced understanding of all instructions. Subjective - Subjective Date of service: 12/16/19 Principal diagnosis: POD #3; s/p Primary LTCS Interval history: /postop day 3 S/P primary low transverse section. Doing well. Voiding without difficulty. Ambulating well. Passing gas. Tolerating a regular diet without nausea or vomiting. Patient denies headache, chest pain, dizziness, cough, abdominal pain, leg pain, or heavy bleeding. Patient has anemia and is receiving iron supplementation. Patient reports: appetite normal, voiding normally, pain well controlled, flatus, ambulating normally, no dizzy ambulation, no nauseated : doing well Objective - Vital Signs Latest vital signs: Vital Signs Temp Pulse Resp BP BP Pulse Ox 12/16/19 09:25 98 F 80 20 110/70 12/15/19 23:48 98.4 F 75 18 115/64 96 12/15/19 16:05 97.8 F 70 18 112/61 Intake and Output 12/15/19 12/16/19 12/16/19 23:59 07:59 15:59 Intake Total 480 120 Output Total 400 Balance 80 120 Intake: Oral 240 120 Intake, Free Water 240 Output: Urine 400 Void 400 Other: Total, Intake Amount 240 120 Total, Output Amount 400 # Voids Void 1 1 # Bowel Movements 1 - Exam Cardiovascular: Present: Regular rate, Normal S1, Normal S2 Lungs: Present: Clear to auscultation Abdomen: Present: normal appearance, soft, normal bowel sounds. Absent: distention, tenderness, guarding, rigidity Uterus: Present: normal, firm, fundal height below umbilicus. Absent: bogginess, tenderness Extremities: Present: normal. Absent: tenderness, edema Incision: Present: normal, dry, intact
--- NOTE | 2019-12-16 11:23 | Discharge Summary ---
Providers - Providers Date of Admission: 12/11/19 18:00 Date of discharge: 12/16/19 Attending physician: FAIZAN SUN Primary care physician: FAIZAN SUN Hospitalization Reason for admission: induction of labor Delivery: Procedure: primary low transverse Incision: normal, dry, intact Other procedures: none complications: none Discharge diagnosis: IUP at term delivered baby: female Pertinent studies: Labs Hospital course: Normal hospital course. Condition at discharge: Good Disposition: DC-[id number] TO HOME OR SELFCARE - Discharge Diagnoses (1) Term delivered Status: Acute (2) Anemia due to blood loss Status: Acute Plan - Discharge Medications Prescriptions: Ibuprofen [Motrin] 600 mg PO Q8H PRN #30 tablet PRN Reason: Pain oxyCODONE /ACETAMINOPHEN [Percocet 5/325] 1 tab PO Q6HR PRN #20 tablet PRN Reason: Pain - Provider Discharge Summary Activity: routine, no sex for 6 weeks, no heavy lifting 4 weeks, no strenuous exercise Diet: routine Instructions: routine Additional instructions: Continue taking your vitamin and iron supplement at home. Call your doctor immediately for: * Fever > 100.5 * Heavy vaginal bleeding ( >1 pad per hour) * Severe persistent headache * Shortness of breath * Reddened, hot, painful area to leg or breast * Drainage or odor from incision. * Keep incision clean and dry at all times and follow doctor's instructions reg arding bathing/showering - Follow up plan Follow up: FAIZAN SUN MD [Primary Care Provider] - 7 Days Forms: [facility] Discharge Summary
[2019-12-16 15:27] VITALS: BP 103/61
== END 2019-12-16 15:15 | disposition home or self-care (01) | DRG 786 ==
LOC: TRG 17:26 → LD 17:26 → TRG 18:00 → LD 18:00 → TRG 12-12 11:05 → LD 12-12 11:05 → OB 12-13 05:23
PROVIDERS: ADMIT Obstetrics & Gynecology; ATTEND Obstetrics & Gynecology
PROC: 10D00Z1 Extraction of Products of Conception, Low, Open Approach (ICD-10-PCS; principal; 2019-12-13)
DX: O48.0 Post-term pregnancy (principal); O75.3 Other infection during labor; D62 Acute posthemorrhagic anemia; N80.9 Endometriosis, unspecified; O99.02 Anemia complicating childbirth; O62.0 Primary inadequate contractions; Z37.0 Single live birth; Z3A.40 40 weeks gestation of pregnancy; Z88.0 Allergy status to penicillin
CPT/HCPCS: 36415; 76819; 85014; 85018; 85027; 86850; 86900; 86901; 88307; G0378; A6250; J0595; J0690; J1885; J2210; J2270; J2405; J2590; J2765; J3490; J7120